=== PATIENT | male | born 1965 ===

== ENCOUNTER 2018-01-12 08:42 | Emergency (ER) | payer SELFPAY ==
[2018-01-12 09:45] VITALS: BP 119/82
[2018-01-12] MEDS ORDERED: Albuterol HFA INHALER* 8 gm MDI INH ONE (10:11)
--- NOTE | 2018-01-12 10:12 | UC ---
Respiratory Complaint HPI - HPI Summary HPI Summary: 52 yo male with cough (productive) x 2 weeks mylagias occas fever and chills wheezing smoker no CP or SOB - History of Current Complaint Chief Complaint: UCRespiratory Stated Complaint: COLD SYMPTOMS Time Seen by Provider: 01/12/18 10:05 Hx Obtained From: Patient Onset/Duration: Gradual Onset, Lasting Weeks - 2 Timing: Constant Severity Initially: Moderate Severity Currently: Moderate Pain Intensity: 8 Pain Scale Used: 0-10 Numeric Character: Cough: Productive - yellowish Aggravating Factors: Nothing Alleviating Factors: Nothing Associated Signs And Symptoms: Positive: Fever, Chills - Allergies/Home Medications Allergies/Adverse Reactions: Allergies Allergy/AdvReac Type Severity Reaction Status Date / Time morphine Allergy Intermediate Itching Verified 01/12/18 09:31 PMH/Surg Hx/FS Hx/Imm Hx Previously Healthy: Yes - chronic Left shoulder pain - Surgical History Surgical History: Yes Surgery Procedure, Year, and Place: left ankle fusion 2011. [facility]ERNIA REPAIR - Family History Known Family History: Positive: Cardiac Disease, Hypertension - Social History Alcohol Use: Weekly Alcohol Amount: 1-2 beers after work Substance Use Type: None Smoking Status (MU): Heavy Every Day Tobacco Smoker Type: Cigarettes Amount Used/How Often: 1 1/2 ppd Length of Time of Smoking/Using Tobacco: ~ 25 Have You Smoked in the Last Year: No - Immunization History Most Recent Tetanus Shot: 2011 Review of Systems Constitutional: Fever, Chills, Fatigue ENT: Nasal Discharge, Sinus Congestion Respiratory: Cough Musculoskeletal: Arthralgia, Myalgia Is Patient Immunocompromised?: No All Other Systems Reviewed And Are Negative: Yes Physical Exam Triage Information Reviewed: Yes Appearance: Well-Appearing, No Pain Distress, Well-Nourished Vital Signs: Initial Vital Signs Temp 98.9 F 01/12/18 09:33 Pulse 82 01/12/18 09:33 Resp 18 01/12/18 09:33 BP 119/82 01/12/18 09:33 Pulse Ox 96 01/12/18 09:33 Vital Signs Reviewed: Yes Eyes: Positive: Conjunctiva Clear ENT: Positive: Uvula midline. Negative: Nasal congestion, Nasal drainage, Sinus tenderness Neck: Positive: Supple, Nontender, No Lymphadenopathy Respiratory: Positive: No respiratory distress, No accessory muscle use, Wheezing Cardiovascular: Positive: RRR, No Murmur Musculoskeletal: Positive: No Edema, ROM Limited @ - left shoulder Neurological: Positive: Alert Psychological Exam: Normal Skin Exam: Normal UC Diagnostic Evaluation - Laboratory O2 Sat by Pulse Oximetry: 96 - normal/not hypoxic Respiratory Course/Dx - Differential Dx/Diagnosis Provider Diagnoses: acute bronchitis. tobacco abuse Discharge - Sign-Out/Discharge Documenting (check all that apply): Discharge - Discharge Plan Condition: Stable Disposition: HOME Prescriptions: Amoxicillin PO (*) [Amoxicillin 875 MG (*)] 875 mg PO BID #20 tab predniSONE [Deltasone] 40 mg PO DAILY #10 tab Patient Education Materials: Acute Bronchitis (ED) Forms: *Work Release Referrals: [facility] [place] [facility] [Outside] - 2 Weeks Additional Instructions: use albuterol puffer with spacer 2 puffs 4x day for a week YOU NEED TO STOP SMOKING At this point I don't think you need a chest xray If not improved in 3-5 days we may need to check one so please get rechecked in that time frame if not better - Billing Disposition and Condition Condition: STABLE Disposition: HOME
== END 2018-01-12 10:31 | disposition home or self-care (01) ==
LOC: UCCORT 08:42
DX: J20.9 Acute bronchitis, unspecified (principal); F17.210 Nicotine dependence, cigarettes, uncomplicated; Z88.5 Allergy status to narcotic agent
CPT/HCPCS: 99213; A9270-GY; G0463